=== PATIENT | male | born 1995 | race Caucasian/White ===

== ENCOUNTER 2023-10-15 05:49 | Emergency (ER) | payer OTHER, SELFPAY ==
[2023-10-15 06:00] VITALS: BP 118/78; PULSE 68; RESP 18; TEMP 36.9; O2SAT 99
--- NOTE | 2023-10-15 06:42 | ED.GENADULT ---
HPI - General Adult General Chief complaint: Eye Problems Stated complaint: eye complaint Time Seen by Provider: 10/15/23 06:19 History of Present Illness HPI narrative: This is a 28-year-old male presenting ED with chief complaint of foreign body sensation left eye. Patient said a construction site when he thought he got dirt in his eye. Rinse it out at that time improved her back then he continued to have irritation. Patient has some tearing of his eye and slightly blurry vision. No other complaints. Tetanus is up-to-date Related Data Allergies Allergy/AdvReac Type Severity Reaction Status Date / Time No Known Allergies Allergy Verified 10/15/23 06:08 [facility] Surgical History Surgical History History of hernia repair Family History Family History Other Hypertension Social History Social History Smoking status: Never smoker Alcohol intake: current Substance use: never Substance use type: does not use Lack of Transportation: No Lack of Food: Never True Current Housing: I Have Housing Concerned About Future Housing: No Difficulty Paying Gas/Electric Bills: No Difficulty Paying for Meds: No Currently Unemployed: No Education: Trade/Vocational Certificate Difficulty w/ Childcare or Family Care: No Living arrangements: with family Exam Narrative: APPEARANCE: No apparent distress. Head: atraumatic. EYES: EOMI, NOSE: Atraumatic NECK: Trachea midline RESPIRATORY: No increased rate of breathing CARDIOVASCULAR: RRR, ABDOMINAL: Non-distended MUSCULOSKELETAl: No obvious deformities NEURO: Alert. Moving 4/4 extremities SKIN:: Warm, dry. Normal color PSYCHIATRIC: Normal affect Eye exam: Fluorescein stain without obvious corneal abrasion, no foreign bodies noted over the cornea or in the lid recesses. Lids everted with no foreign bodies. Pressure 22. Pain improved with tetracaine. Course Vital Signs Vital signs: Vital Signs Temperature 98.5 F 10/15/23 06:00 Pulse Rate 68 10/15/23 06:00 Respiratory Rate 18 10/15/23 06:00 Blood Pressure 118/78 10/15/23 06:00 Pulse Oximetry 99 10/15/23 06:00 Oxygen Delivery Room Air 10/15/23 06:00 Temperature 98.5 F 10/15/23 06:00 Pulse Rate 68 10/15/23 06:00 Respiratory Rate 18 10/15/23 06:00 Blood Pressure 118/78 10/15/23 06:00 Pulse Oximetry 99 10/15/23 06:00 Oxygen Delivery Room Air 10/15/23 06:00 Medical Decision Making MDM Narrative Medical decision making narrative: -Course: 28-year-old male presenting with irritation of his left eye. Eye exam was unremarkable with no evidence of corneal abrasion or foreign bodies. However the patient pain did improve with tetracaine. Patient will be placed on erythromycin ointment given Ophthalmology follow-up. -DDX includes but is not limited to: Corneal abrasion, corneal irritation, foreign body -Shared decision making / Disposition: Discharged -RX erythromycin ointment Vital Signs Vital Signs: Vital Signs Temperature 98.5 F 10/15/23 06:00 Pulse Rate 68 10/15/23 06:00 Respiratory Rate 18 10/15/23 06:00 Blood Pressure 118/78 10/15/23 06:00 Pulse Oximetry 99 10/15/23 06:00 Oxygen Delivery Room Air 10/15/23 06:00 Temperature 98.5 F 10/15/23 06:00 Pulse Rate 68 10/15/23 06:00 Respiratory Rate 18 10/15/23 06:00 Blood Pressure 118/78 10/15/23 06:00 Pulse Oximetry 99 10/15/23 06:00 Oxygen Delivery Room Air 10/15/23 06:00 Discharge Plan Discharge Clinical Impression: Corneal irritation of left eye Patient Disposition: Home, Self-Care Condition: Stable Instructions: Antibiotic Form, Corneal Abrasion (DC) Additional Instructions: Please use the erythromycin ointment as instructed. Please follow-up with [facility]
== END 2023-10-15 06:53 | disposition home or self-care (01) ==
PROVIDERS: Emergency Provider Emergency Medicine; PCP Family Medicine
DX: H18.892 Other specified disorders of cornea, left eye (principal)
CPT/HCPCS: 99283